=== PATIENT | female | born 1960 | race African-American/Black ===

== ENCOUNTER 2018-07-29 05:24 | Emergency (ER) | payer MEDICARE ==
[~2018-07-29] VITALS: Ht 154.9 cm; Wt 85.7 kg
[2018-07-29] MEDS ORDERED: AVAPRO300 MG (05:38)
[2018-07-29] MEDS ORDERED: TUSSIONEX PENN115 ML PO (06:06)
[2018-07-29 06:21] VITALS: BP 141/73
== END 2018-07-29 06:22 | disposition home or self-care (01) ==
LOC: M.ERS 05:24
DX: R05 Cough (principal); I10 Essential (primary) hypertension; M79.7 Fibromyalgia; Z90.49 Acquired absence of other specified parts of digestive tract; Z88.8 Allergy status to other drugs, medicaments and biological substances